=== PATIENT | female | born 1945 | race Caucasian/White ===

== ENCOUNTER → 2016-10-22 | Outpatient (CLI) | payer MEDICARE, BC ==
[~2016-10-22] MED LIST: ALDACTONE DPS25 MG PO; AMARYL DPS4 MG PO; ASA CHILDREN'S81 MG PO; AVAPRO DPS150 MG PO; BALANCED B PO; BENICAR40 MG PO; CARVEDILOL25 MG PO; CATAPRES-DPS0.2 MG PO; CATAPRES-TTS 31 EACH TP; DEMADEX10 MG PO; FEROSUL325 MG PO; GLUCOPHAGE1000 MG PO; KLONOPIN DPS0.5 MG PO; KLOR-CON M2020 ME1 PO; LEVEMIR100 UNIT/1 SQ; LIPITOR DPS20 MG PO; MAGNESIUM250 MG PO; MAGNESIUM400 M1 PO; OMEGA-3 DPS1000 MG PO; PRESERVISION L1 EACH PO; PRILOSEC DPS20 MG PO; PROTONIX40 MG PO; SPIRIVA18 MCG IH; VITAMIN B-12100 MCG PO; VITAMIN D31000 UNIT PO
== END | disposition home or self-care (01) ==
LOC: RAD.S 10-14 10:30
DX: E04.9 Nontoxic goiter, unspecified (principal); E11.8 Type 2 diabetes mellitus with unspecified complications; E89.0 Postprocedural hypothyroidism; Z79.4 Long term (current) use of insulin

== ENCOUNTER 2016-11-12 05:41 | Day surgery (SDC) | payer MEDICARE, BC ==
[~2016-11-12] VITALS: Ht 165.1 cm; Wt 52.4 kg
--- NOTE | 2016-12-10 13:25 | OR ---
ADMIT: 11/12/2016 RM/LOC: [facility] MR#: [id number] [facility] [address] [id number] [address] [place] [address] Operative/Delivery Room Report SEX: F AGE: 71 : 1945 SURGERY DATE: 11/12/2016 SURGEON: Tj Aguilar MD PREOPERATIVE DIAGNOSES: 1. Gastroesophageal reflux disease. 2. Change in bowel habits. 3. Chronic diarrhea. POSTOPERATIVE DIAGNOSES: 1. Evidence of some gastritis. No real reflux findings on her stomach. 2. Colonoscopy normal other than some scattered sigmoid diverticula. PROCEDURE: EGD with biopsies of the gastric antrum and colonoscopy. ANESTHESIA: MAC. ESTIMATED BLOOD LOSS: Less than 5 mL. INDICATION FOR PROCEDURE: Please see H and P. DESCRIPTION OF PROCEDURE: After the risks, benefits, possible complications, and alternatives had been explained and informed consent had been obtained, the patient was taken back to the procedure room, underwent sedation. The flexible EGD scope was introduced, slowly maneuvered down through the esophagus. You can see the GE junction which appeared normal on picture #1 without any other significant reflux findings. Maneuvered through here, through the stomach, down into the second portion of the duodenum seen in the second picture. The duodenum and duodenal bulb appeared okay. The gastric antrum had some mild irritation and with her increased kind of GERD symptoms, I did do some biopsies there. Retroflexion of the scope showed no significant hiatal hernia. She does have just a little bit of a diverticulum, almost at the cardia, seen in picture #4. Nothing otherwise to worry about, whatsoever. ADMIT: 11/12/2016 RM/LOC: [facility] MR#: [id number] [place], [place] [id number] [address] [place] [address] Operative/Delivery Room Report SEX: F AGE: 71 : 1945 The remainder of the stomach looked normal and the esophagus on the way out was then perceived as the scope was removed and that portion of the procedure terminated. The patient was repositioned. The flexible colonoscope was introduced and slowly maneuvered all the way over to the cecum with the appendiceal orifice seen in picture #1. I did not identify any significant masses, polyps, or lesions, mucosal changes throughout the cecum, ascending, transverse, descending colon. There were some scattered sigmoid diverticula, but no other polyps, masses, or lesions. The lower rectum on rectal exam revealed no mass or lesion. The scope was removed and the procedure was terminated. Tolerated it well, was taken to recovery room in stable and satisfactory condition. Tj Aguilar MD/ lima JOB #: [id number] CC: Tj Aguilar MD, Attending Physician Buddy Anne MD, Family Physician
== END 2016-11-12 09:45 | disposition home or self-care (01) ==
LOC: SSS 05:41
PROC: 0DB68ZX Excision of Stomach, Via Natural or Artificial Opening Endoscopic, Diagnostic (ICD-10-PCS; principal; 2016-11-12)
PROC: 0DJD8ZZ Inspection of Lower Intestinal Tract, Via Natural or Artificial Opening Endoscopic (ICD-10-PCS; principal; 2016-11-12)
DX: K57.30 Diverticulosis of large intestine without perforation or abscess without bleeding (principal); K52.9 Noninfective gastroenteritis and colitis, unspecified; K21.9 Gastro-esophageal reflux disease without esophagitis; R19.4 Change in bowel habit; I10 Essential (primary) hypertension; E11.9 Type 2 diabetes mellitus without complications; E78.5 Hyperlipidemia, unspecified; Z90.49 Acquired absence of other specified parts of digestive tract; Z90.710 Acquired absence of both cervix and uterus; Z98.890 Other specified postprocedural states

== ENCOUNTER → 2016-12-26 | Outpatient (CLI) | payer MEDICARE, BC | END | disposition home or self-care (01) | LOC: NUE 09:24 | DX: E11.8 Type 2 diabetes mellitus with unspecified complications (principal); Z79.4 Long term (current) use of insulin | CPT/HCPCS: 258 ==